=== PATIENT | female | born 2005 | race Caucasian/White ===

== ENCOUNTER 2023-05-08 10:15 | Outpatient (RCR) | payer BC, SELFPAY | END 2023-05-30 10:53 | disposition home or self-care (01) | PROVIDERS: Visit Provider Orthopaedic Surgery | DX: S83.005A Unspecified dislocation of left patella, initial encounter (principal); Z51.89 Encounter for other specified aftercare | CPT/HCPCS: 97110; 97112; 97140; 97162 ==

== ENCOUNTER 2024-03-10 14:27 | Outpatient (CLI) | payer BC, SELFPAY ==
--- NOTE | 2024-03-10 14:45 | MR_ITS ---
[facility] [address] [facility] [address] Phone:?[phone] Fax:?[phone] Referring Physician Information: Nayan Carvajal M.D. [address] [facility] [address] Phone:?[phone] Fax:?[phone] Patient:Valdez Vazquez D.O.B:?2005 Sex:?Female Phone:?[phone] [facility] MRN:?[id number] Exam Date:?03/10/2024 EXAM: MRI of the LEFT KNEE, without contrast CLINICAL HISTORY: Recurrent dislocation of the left patella. COMPARISONS: Plain radiographs 02/28/2024. TECHNICAL: MR sequences of the left knee: sagittals: PD, PDFS coronals: PD, STIR axials: PD, T2 FS CONTRAST: None SEDATION: None FINDINGS: Bones: There is chronic intra-articular fracture through the medial patellar facet with overlying slitlike full-thickness chondral injury without associated bone marrow edema currently. Curvilinear decreased PD and T2 signal within the subchondral portion of the lateral patellar facet measuring 2.0 cm in craniocaudad dimension by 1.5 cm in transverse dimension and located 0.3 cm deep to the subchondral bone plate likely reflects sequela of previous impaction injury. No T2/fluid intense border to indicate instability is seen. Patellofemoral joint: Cartilage: There is chronic essentially healed intra-articular through the medial patellar facet with overlying slitlike full-thickness chondral injury without associated bone marrow edema currently. Retinacula: No retinacular tear is seen. Fat pads: Edema-like signal within the superolateral portion of the infrapatellar fat pad is associated with patellar tendon-lateral femoral condyle friction/patellar maltracking. The Insall Salvati index measures 1.16. The lateral trochlear inclination angle measures 4 degrees. The tibial tubercle to trochlear groove distance measures 2.0 cm. Knee joint: Effusion: Physiologic amount of joint fluid. Popliteal cyst: None. Intra-articular bodies: None. Posteromedial corner: The semimembranosus and pes anserine tendons are intact. Medial compartment: Medial meniscus: Intact. Cartilage: Intact. Lateral compartment: Lateral meniscus: Intact. Cartilage: Intact. Ligaments: Anterior cruciate ligament: Intact. Posterior cruciate ligament: Intact. Medial collateral ligament: Intact. Posterior oblique ligament: Intact. Fibular collateral ligament: Intact. Posterolateral corner: The distal biceps femoris tendon, iliotibial band, popliteus tendon, popliteus muscle, popliteofibular ligament, and arcuate ligament are intact. Extensor mechanism: Patellar tendon: Intact. Quadriceps tendon: Intact. IMPRESSION: 1. Chronic intra-articular fracture through the medial patellar facet with overlying slitlike full-thickness chondral injury. This could reflect sequela of previous transient lateral patellar dislocation injury. No associated bone marrow edema currently. 2. Curvilinear decreased signal within the subchondral portion of the lateral patellar facet likely reflects sequela of previous impaction injury. No T2/fluid intense border to indicate an unstable osteochondral fragment. No associated bone marrow edema currently. 3. Edema-like signal within the superolateral portion of the infrapatellar fat pad is associated with patellar tendon-lateral femoral condyle friction/patellar maltracking. 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 The tibial tubercle to trochlear groove distance measures 2.0 cm. The Insall Salvati index is within normal limits. 4. No retinacular tear, cruciate or collateral ligament injury, tendinous pathology, or meniscal tear of the left knee. Intact medial and lateral compartment cartilage. RCB Electronically signed on 03/10/2024 4:57:00 PM by Dejuan Styles M.D.
== END 2024-03-10 14:28 | disposition home or self-care (01) ==
PROVIDERS: PCP Student in an Organized Health Care Education/Training Program; Visit Provider Orthopaedic Surgery Sports Medicine
DX: M22.02 Recurrent dislocation of patella, left knee (principal); M25.562 Pain in left knee
CPT/HCPCS: 73721